=== PATIENT | female | born 1990 | race Two or more races ===

== ENCOUNTER 2017-11-11 23:52 | Emergency (ER) | payer MEDICAID, OTHER ==
[~2017-11-11] VITALS: Ht 170.2 cm; Wt 104.3 kg
[2017-11-11 23:59] VITALS: BP 135/78
[2017-11-12] MEDS ORDERED: KETOROLAC TROMETH 60MG/2ML VIAL IM ONE (03:30)
[2017-11-12] MEDS ORDERED: methylPREDNISolone SOD SUCC 125 MG/2 ML VL IM ONE (03:30)
== END 2017-11-12 03:39 | disposition home or self-care (01) ==
LOC: ER 23:56
DX: S43.401A Unspecified sprain of right shoulder joint, initial encounter (principal); X58.XXXA Exposure to other specified factors, initial encounter; Y93.89 Activity, other specified; Y99.8 Other external cause status; Y92.89 Other specified places as the place of occurrence of the external cause
CPT/HCPCS: 73060; 96372; 99284; J1885; J2930

== ENCOUNTER 2023-08-27 22:16 | Emergency (ER) | payer MEDICAID ==
[~2023-08-27] VITALS: Ht 172.7 cm; Wt 109.0 kg
[2023-08-27 22:30] VITALS: BP 111/73; PULSE 82; RESP 16; O2SAT 97
[2023-08-28] MEDS ORDERED: ACET500T58 PO (02:47)
[2023-08-28] MEDS: ACETAMINOPHEN 325 MG TAB PO ONE (03:02)
== END 2023-08-28 03:06 | disposition home or self-care (01) ==
LOC: ER 22:16
DX: S93.492A Sprain of other ligament of left ankle, initial encounter (principal); Z79.899 Other long term (current) drug therapy; X50.1XXA Overexertion from prolonged static or awkward postures, initial encounter; Y93.01 Activity, walking, marching and hiking; Y92.89 Other specified places as the place of occurrence of the external cause; Y99.8 Other external cause status
CPT/HCPCS: 73610